=== PATIENT | female | born 1965 | race Caucasian/White ===

== ENCOUNTER 2019-08-07 14:42 | Outpatient (CLI) | payer OTHER, SELFPAY ==
[2019-08-07 15:25] LABS: Basophils Percent Auto 0.4 % (0.2-1.2); Eosinophils Absolute Auto 0.3 K/mm3 (0-0.3); Eosinophils Percent Auto 3.5 % (0-4.4); Hematocrit 43.3 % (37.0-47.0); Hemoglobin 13.5 g/dL (12.0-15.0); Immature Granulocyte Absolute 0.03 K/mm3 (0.00-0.031); Immature Granulocyte Percent A 0.4 % (0-0.5); Lymphocytes Absolute Auto 1.79 K/mm3 (0.9-3.2); Lymphocytes Percent Auto 23.5 % (18.3-44.2); Mean Corpuscular HGB Conc 31.2 g/dl (32-36); Mean Corpuscular Hemoglobin 28.7 pg (26-34); Mean Corpuscular Volume 92.1 fl (80-100); Mean Platelet Volume 11.1 fl (7.4-10.4); Monocytes Absolute Auto 0.5 K/mm3 (0.1-0.6); Monocytes Percent Auto 7.1 % (2.6-8.5); Neutrophils Percent Auto 65.1 % (45.5-73.1); Platelet Count Result 161 k/mm3 (150-375); Red Cell Distribution Width 14.5 % (11.5-14.5); White Blood Count 7.6 K/mm3 (4.5-10.0)
[2019-08-07 15:33] LABS: Alanine Aminotransferase 21 U/L (4-35); Albumin Level 3.9 g/dL (3.5-5.1); Alkaline Phosphatase 80 U/L (38-126); Aspartate Amino Transferase 18 U/L (14-36); Bilirubin,Total 0.5 mg/dL (0.2-1.3); Blood Urea Nitrogen 13 mg/dL (7-17); Calcium 10.1 mg/dL (8.4-10.2); Carbon Dioxide 32 mmol/L (22-30); Chloride 100 mmol/L (98-107); Estimated Glomerular Filt Rate > 60; Glucose 108 mg/dL (65-105); Potassium 4.3 mmol/L (3.4-5.0); Sodium 138 mmol/L (137-145)
== END 2019-08-07 14:43 | disposition home or self-care (01) ==
PROVIDERS: PCP Family Medicine
DX: F33.2 Major depressive disorder, recurrent severe without psychotic features (principal)
CPT/HCPCS: 36415; 80053; 85025

== ENCOUNTER 2020-09-12 14:26 | Emergency (ER) | payer OTHER, SELFPAY ==
--- NOTE | ~2020-09-12 | US_ITS ---
EXAMINATION: US venous doppler [facility] DATE: 09/12/2020 15:13 INDICATION: Left calf pain. TECHNIQUE: Grayscale ultrasound images without and with compression and Doppler ultrasound images of the left lower extremity veins were obtained. COMPARISON: None. FINDINGS: The visualized portions of left common femoral vein, profunda (deep) femoral vein, femoral vein, popl iteal vein, peroneal veins, posterior tibial veins, and greater saphenous vein outflow are patent. IMPRESSION: 1. No deep venous thrombosis. Reviewed, dictated and finalized at location A.
[2020-09-12 14:30] VITALS: BP 150/99; PULSE 90; RESP 20; TEMP 36.7; O2SAT 94
--- NOTE | 2020-09-12 15:23 | ED.LOWEXIN ---
HPI - Extremity Injury (Lower) General Chief Complaint: Extremity Injury, Lower Stated Complaint: Left Leg Pain, Possible Blood Clot Time Seen by Provider: 09/12/20 14:43 Source: RN notes reviewed History of Present Illness HPI Narrative: Patient presents to emergency department from home for left leg pain. Patient states symptoms began proximally 1 week ago. Pain is located in the left buttocks region and radiates down to the right calf pain is worse with movement of the left leg and movement of the back she denies any direct trauma or injury. She states she called her PCP and was instructed to come the emergency department to rule out a blood clot she denies any fevers or chills chest pain shortness of breath or any other symptoms Related Data Allergies Allergy/AdvReac Type Severity Reaction Status Date / Time No Known Allergies Allergy Unknown Verified 06/12/18 17:10 Review of Systems Review of Systems: Narrative: Gen.: Denies fevers or chills ENT: Denies congestion Respiratory: Denies shortness of breath CV: Denies chest pain GI: Denies abdominal pain nausea, emesis or diarrhea denies bowel or bladder incontinence Musculoskeletal: See HPI Neuro: Denies numbness, tingling, weakness or focal weakness Skin: Denies rash Except as documented, all other systems reviewed and negative [facility] Past Medical History Medical History (Updated 09/12/20 @ 15:27 by Griffin Medrano DO) Bipolar 1 disorder Social History Social History (Updated 09/12/20 @ 15:24 by Griffin Medrano DO) Smoking status: Never smoker Exam Narrative: Exam Narrative: APPEARANCE: No acute distress, nontoxic, resting in bed EYES: EOMI HEENT: Normocephalic, atraumatic, OMM RESPIRATORY: No respiratory distress ABDOMINAL: Soft, nontender, MUSCULOSKELETAl: Moves all extremities. No clubbing, cyanosis or edema. Tender palpation left posterior calf and left posterior thigh no overlying erythema or signs of infection, no tenderness of the hip knee or ankle full range of motion of all dorsalis pedis pulse 2+ neurovascular intact Back no midline thoracic or lumbar terms palpation tender palpation over left piriformis region NEURO: Awake and alert. Following commands, speech normal, no focal deficits muscle strength 5 out of 5 bilateral lower extremities SKIN:: Warm, dry. No rashes lesions or abrasions PSYCHIATRIC: Normal affect/mood, Course Course Emergency Course: Discussed with patient results of workup and diagnosis. Discussed need for follow-up with primary care, proper use of medication, and reasons to return to the emergency department. Patient understands and agrees to current treatment plan Vital Signs Vital signs: Vital Signs Temperature 98.0 F 09/12/20 14:30 Pulse Rate 90 09/12/20 14:30 Respiratory Rate 20 09/12/20 14:30 Blood Pressure 150/99 H 09/12/20 14:30 Pulse Oximetry 94 09/12/20 14:30 Temperature 98.0 F 09/12/20 14:30 Pulse Rate 90 09/12/20 14:30 Respiratory Rate 20 09/12/20 14:30 Blood Pressure 150/99 H 09/12/20 14:30 Pulse Oximetry 94 09/12/20 14:30 MDM - Extremity Injury (Lower) MDM Narrative Medical decision making narrative: Pain from left buttocks down into left calf concern of DVT by her PCP. On exam she is tender in the left piriformis region neurovascular tact in left lower leg ultrasound shows no signs of blood clot feel that is most likely sciatica will treat with anti-inflammatory and muscle relaxers Imaging Data Radiologist's impression: ITS Impressions Venous Doppler Study 09/12/20 15:17 IMPRESSION: 1. No deep venous thrombosis. Discharge Plan Discharge Clinical Impression: Sciatica Patient Disposition: Home, Self-Care Condition: Stable Instructions: Antibiotic Form, Sciatica (ED) Additional Instructions: Return for increasing pain numbness or tingling in the extremities bowel or bladder incontinence or any other symptoms of concern P
== END 2020-09-12 15:41 | disposition home or self-care (01) ==
PROVIDERS: Emergency Provider Emergency Medicine; PCP Family Medicine
DX: M54.32 Sciatica, left side (principal)
CPT/HCPCS: 93971; 99284

== ENCOUNTER 2021-11-02 17:12 | Emergency (ER) | payer OTHER, SELFPAY ==
--- NOTE | ~2021-11-02 | XR_ITS ---
EXAMINATION: XR chest 2V Exam Date/Time: 11/02/2021 17:24 CDT HISTORY: COUGH x 1 wk, diminished breath sounds Rt side;non smoker Comparison: 06/12/2018. RESULT: Lines, tubes, and devices: None. Lungs and pleura: Clear. Cardiomediastinal silhouette: Stable cardiomediastinal silhouette. Other: No acute osseous or upper abdominal finding. IMPRESSION: No acute cardiopulmonary process. Reviewed, dictated and finalized at location K.
[2021-11-02 17:17] VITALS: BP 150/88; PULSE 107; RESP 16; TEMP 36.3; O2SAT 100
[2021-11-02 17:21] VITALS: BP 150/88; PULSE 107; RESP 16; TEMP 36.3; O2SAT 100
--- NOTE | 2021-11-02 17:26 | ED.URI ---
HPI - URI/Sore Throat General Chief Complaint: Upper Respiratory Infection Stated Complaint: SINUS CONGESTION/COUGH Time Seen by Provider: 11/02/21 17:16 Source: patient and RN notes reviewed History of Present Illness HPI Narrative: Patient is a 56-year-old female who presents the urgent care with complaints of nasal congestion/head congestion, cough with intermittent dyspnea, postnasal drainage, sore throat. Patient states she is also had chills and sweats but denies of known fever, nausea or vomiting. Patient denies of chest pain. Patient states that she does have a history of bronchitis and also wears a CPAP at night. States that she was seen last Wednesday, with 1 day symptomatic, at [facility]. Patient states that she was placed on amoxicillin 875 mg and Tessalon Perles. Patient states she is been taking the medication but has not had any relief of symptoms. Patient states she also tested negative for COVID last Wednesday. No other acute complaints. No acute distress noted. Patient aware of the plan of care. Some parts of this dictation were generated by voice recognition software and may contain typographical and/or grammatical inaccuracies. Related Data Home Medications Medication Instructions Recorded Confirmed alprazolam 0.5 mg PO TID 11/02/21 11/02/21 duloxetine 60 mg PO DAILY 11/02/21 11/02/21 trazodone 50 mg PO HS 11/02/21 11/02/21 trazodone 100 mg PO HS 11/02/21 11/02/21 Allergies Allergy/AdvReac Type Severity Reaction Status Date / Time No Known Allergies Allergy Unknown Verified 11/02/21 17:21 Review of Systems Review of Systems: CONSTITUTIONAL: Reports of chills and sweats EYES: Denies visual changes, redness, or discharge. ENT: Reports of nasal congestion, head congestion, postnasal drainage and sore throat CARDIOVASCULAR: Denies chest pain, palpitations, or edema. RESPIRATORY: Reports of persistent cough with intermittent dyspnea GASTROINTESTINAL: Denies abdominal pain, nausea, vomiting, or diarrhea. GENITOURINARY: Denies dysuria or hematuria. SKIN: Denies rash or itching. MUSCULOSKELETAL: Denies back pain, joint pain, or myalgia. NEUROLOGIC: Denies headache, numbness, or weakness. All other systems reviewed are negative, except as documented in HPI. [facility] Past Medical History Medical History (Updated 11/02/21 @ 18:05 by JAY Giordano) Bipolar 1 disorder Social History Social History (Updated 09/12/20 @ 15:24 by Griffin Medrano DO) Smoking status: Never smoker Comments At the time of my signature, I reviewed and agree with the nursing past medical, surgical, social, and family history. There is no relevant family history pertinent to the patient complaint. Exam Narrative: GENERAL: This is a well-nourished, well-developed patient, in no apparent distress. HEAD: normocephalic, atraumatic. EYES: PERRL. Sclera clear/white. Vision is grossly intact. EARS: External ears normal, auditory canals clear and without drainage, mild effusion to the right. Bilateral TMs normal without perforation. Hearing grossly intact. NOSE: External nose normal with no obvious nasal discharge, bilateral erythemic nares with clear rhinorrhea THROAT: Mucous membranes moist, posterior pharynx clear. Moderate postnasal drainage NECK: Neck supple CARDIOVASCULAR: Regular rate and rhythm without murmurs, gallops, or rubs. RESPIRATORY: Clear to auscultation. Diminished right upper and lower. No wheezes, rales, or rhonchi. SKIN: warm, intact with no suspicious lesions or rash, good texture and turgor. NEURO: awake, alert, and oriented to person, place and time. There were no obvious focal neurologic abnormalities. EXTREMITIES: No clubbing, cyanosis, or edema. Course Course Level of Care: Express Care Visit Vital Signs Vital signs: Vital Signs Temperature 97.3 F L 11/02/21 17:17 Pulse Rate 107 H 11/02/21 17:17 Respiratory Rate 16 11/02/21 17:17 Blood Pressure 150/88 H 11/02/21 17:
== END 2021-11-02 18:08 | disposition home or self-care (01) ==
PROVIDERS: Emergency Provider Nurse Practitioner Family; PCP Family Medicine
DX: J40 Bronchitis, not specified as acute or chronic (principal); J32.9 Chronic sinusitis, unspecified; Z20.822 Contact with and (suspected) exposure to COVID-19
CPT/HCPCS: 71046; 87426; 99213; C9803; G0463